=== PATIENT | male | born 1985 | race African-American/Black ===

== ENCOUNTER 2017-03-16 19:13 | Emergency (ER) | payer SELFPAY ==
[~2017-03-16] VITALS: Ht 167.6 cm; Wt 58.0 kg
[2017-03-16] MEDS ORDERED: IBUPROFEN 800MG TABLET PO ONE (20:45)
[2017-03-16 21:15] VITALS: BP 123/84
== END 2017-03-16 21:30 | disposition home or self-care (01) ==
LOC: ER 20:48
DX: S93.402A Sprain of unspecified ligament of left ankle, initial encounter (principal); F12.10 Cannabis abuse, uncomplicated; X50.1XXA Overexertion from prolonged static or awkward postures, initial encounter; Y93.89 Activity, other specified; Y92.89 Other specified places as the place of occurrence of the external cause; Y99.8 Other external cause status
CPT/HCPCS: 73610; 99284

== ENCOUNTER 2019-12-30 11:23 | Emergency (ER) | payer MEDICAID ==
[~2019-12-30] VITALS: Ht 167.6 cm; Wt 57.3 kg
[2019-12-30 12:35] VITALS: BP 131/74
== END 2019-12-30 12:35 | disposition home or self-care (01) ==
LOC: ER 11:23
DX: J06.9 Acute upper respiratory infection, unspecified (principal); F41.9 Anxiety disorder, unspecified; Z71.89 Other specified counseling; R03.0 Elevated blood-pressure reading, without diagnosis of hypertension; F12.90 Cannabis use, unspecified, uncomplicated
CPT/HCPCS: 99281